=== PATIENT | male | born 1990 | race Caucasian/White ===

== ENCOUNTER 2019-11-19 22:15 | Emergency (ER) | payer MEDICAID, OTHER ==
[~2019-11-19] VITALS: Ht 182.9 cm; Wt 82.6 kg
[2019-11-19 22:21] VITALS: BP 126/71
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
--- NOTE | 2019-11-19 22:41 | NUR ---
TDAP VACCINE CONSENT OBTAINED AND TDAP VACCINE GIVEN IN LEFT DELTOID. PT TOLERATED WELL.
--- NOTE | 2019-11-19 23:00 | NUR ---
Dr. Garza examining patient.
--- NOTE | 2019-11-19 23:33 | NUR ---
EMT AT BEDSIDE PLACING SPLINT
--- NOTE | 2019-11-19 23:33 | NUR ---
RAD CD VERIFIED BY TWO RNS.
--- NOTE | 2019-11-19 23:33 | NUR ---
ULNER GUTTER SPLINT PLACED ON PT R ARM. +CSM
[2019-11-19 23:50] VITALS: BP 126/71
== END 2019-11-19 23:50 | disposition home or self-care (01) ==
LOC: MED 22:15
DX: S62.306A Unspecified fracture of fifth metacarpal bone, right hand, initial encounter for closed fracture (principal); X58.XXXA Exposure to other specified factors, initial encounter; Y93.89 Activity, other specified; Y92.89 Other specified places as the place of occurrence of the external cause; Y99.8 Other external cause status
CPT/HCPCS: 29125; 73130; 90471; 90715; 99283; Q0092